=== PATIENT | female | born 1980 | race Caucasian/White ===

== ENCOUNTER 2019-09-21 22:27 | Inpatient (IN) | payer MEDICAID ==
[~2019-09-21] VITALS: Ht 162.6 cm; Wt 58.2 kg
[2019-09-21 23:52] LABS: BASOPHILS % (AUTO) 0.6 % (0.0-2.0); EOSINOPHILS % (AUTO) 0.7 % (1.0-6.0); HEMATOCRIT 36.8 % (36-46); HEMOGLOBIN 12.1 g/dL (12.0-16.0); LYMPHOCYTES # (AUTO) 1.4 K/uL (1.0-4.8); LYMPHOCYTES % (AUTO) 32.1 % (22.0-44.0); MEAN CORPUSCULAR HEMOGLOBIN 28.5 pg (26.0-34.0); MEAN CORPUSCULAR HGB CONC 32.8 G/dL (31.0-37.0); MEAN CORPUSCULAR VOLUME 87 fL (80-100); MONOCYTES # (AUTO) 0.4 K/uL (0.1-1.0); NEUTROPHILS # (AUTO) 2.6 K/uL (1.8-7.7); NEUTROPHILS % (AUTO) 57.6 % (40.0-70.0); PLATELET COUNT (AUTO) 366 K/uL (150-450); RED BLOOD CELL COUNT(AUTO) 4.23 MIL/uL (4.00-5.20); RED CELL DISTRIBUTION WIDTH 14.7 % (11.5-14.5)
[2019-09-22 00:26] LABS: SODIUM SERUM 141 mmol/L (136-145)
[2019-09-22 00:28] LABS: ANION GAP 14 mmol/L (8-16); CARBON DIOXIDE 24 mmol/L (22-29); CHLORIDE 103 mmol/L (98-107); CREATININE 0.54 mg/dL (0.60-1.30); GLOMERULAR FILTR. RATE CALC > 60 mL/min (>60); GLUCOSE,RANDOM 83 mg/dL (70-110); UREA NITROGEN, BLOOD 8 mg/dL (7-18)
[2019-09-22 00:29] LABS: ALANINE AMINOTRANSFERASE 66 U/L (12-78); ALBUMIN 3.6 g/dL (3.4-5.0); ALKALINE PHOSPHATASE 71 U/L (46-116); ASPARTATE AMINOTRANSFERASE 76 U/L (15-37); CALCIUM, TOTAL 8.5 mg/dL (8.8-10.5); HCG,QUANTITATIVE < 1 mIU/mL (0-6)
[2019-09-22] MEDS ORDERED: POTASSIUM CHLORIDE 20 MEQ ER TABLET PO ONE (01:00)
[2019-09-22] MEDS ORDERED: ZOLPIDEM TARTRATE 10 MG TABLET PO PRN (01:15)
[2019-09-22 01:28] LABS: CREATINE KINASE, TOTAL ONLY 899 U/L (26-192)
[2019-09-22 05:03] VITALS: BP 129/71
[2019-09-22] MEDS ORDERED: MAG HYDROX/AL HYDROX/SIMETH ES 30 ML SUSPENSION UDCUP PO PRN (07:45)
[2019-09-22] MEDS ORDERED: PETROLATUM,WHITE 28 GM JELLY TP PRN (07:45)
[2019-09-22] MEDS ORDERED: CloNIDine HCL 0.1 MG TABLET PO PRN (07:45)
[2019-09-22] MEDS ORDERED: MAGNESIUM HYDROXIDE SUSPENSION 30 ML UDCUP PO PRN (07:45)
[2019-09-22] MEDS ORDERED: ONDANSETRON HCL 4 MG TABLET PO PRN (07:45)
[2019-09-22] MEDS ORDERED: NICOTINE 14 MG/24 HOUR PATCH TD PRN (07:45)
[2019-09-22] MEDS ORDERED: DOCUSATE SODIUM 100 MG CAPSULE PO PRN (07:45)
[2019-09-22] MEDS ORDERED: ALBUTEROL SULFATE HFA 90 MCG/PUFF 8 GM INHALER IH PRN (07:45)
[2019-09-22] MEDS ORDERED: IBUPROFEN 400 MG TABLET PO PRN (07:45)
[2019-09-22] MEDS ORDERED: GuaiFENesin/D-METHORPHAN [SUGAR-FREE] 200-20MG/10 ML SYRUP UDCUP PO PRN (07:45)
[2019-09-22] MEDS ORDERED: ACETAMINOPHEN 325 MG TABLET PO PRN (07:45)
[2019-09-22] MEDS ORDERED: LOPERAMIDE HCL 2 MG CAPSULE PO PRN (07:45)
[2019-09-22 09:31] VITALS: BP 131/66
[2019-09-22 16:00] VITALS: BP 125/67
[2019-09-22] MEDS: OLANZapine 5 MG TABLET PO SCH (16:15)
[2019-09-23 07:17] LABS: CHOL/HDL RATIO 2.3 (3.9-5.7); POTASSIUM 3.1 mmol/L (3.5-5.1)
[2019-09-23] MEDS: OLANZapine 5 MG TABLET PO SCH ×2 (08:18→16:26)
[2019-09-23 09:41] VITALS: BP 103/61
[2019-09-23 16:00] VITALS: BP 126/63
[2019-09-24 08:30] VITALS: BP 110/59
[2019-09-24] MEDS: OLANZapine 5 MG TABLET PO SCH ×2 (08:39→16:46)
[2019-09-24] MEDS: BuPROPion HCL XL 150 MG ER TABLET PO SCH (14:12)
[2019-09-24 16:00] VITALS: BP 106/58
[2019-09-24] MEDS ORDERED: POTASSIUM CHLORIDE 20 MEQ ER TABLET PO ONE (17:30)
[2019-09-24] MEDS: CIPROFLOXACIN HCL 0.3% 2.5 ML OPHTHALMIC SOLUTION OU SCH (19:33)
[2019-09-25] MEDS: CIPROFLOXACIN HCL 0.3% 2.5 ML OPHTHALMIC SOLUTION OU SCH ×2 (08:33→16:26)
[2019-09-25] MEDS: BuPROPion HCL XL 150 MG ER TABLET PO SCH (08:33)
[2019-09-25] MEDS: OLANZapine 5 MG TABLET PO SCH ×2 (08:33→16:26)
[2019-09-25 11:04] VITALS: BP 119/62
[2019-09-25 17:40] VITALS: BP 116/55
[2019-09-26 08:52] VITALS: BP 101/57
[2019-09-26] MEDS: BuPROPion HCL XL 150 MG ER TABLET PO SCH (09:41)
[2019-09-26] MEDS: OLANZapine 5 MG TABLET PO SCH ×2 (09:41→16:58)
[2019-09-26] MEDS: CIPROFLOXACIN HCL 0.3% 2.5 ML OPHTHALMIC SOLUTION OU SCH ×2 (09:41→16:59)
[2019-09-26 16:00] VITALS: BP 112/61
[2019-09-26] MEDS: LORazepam 2 MG TABLET PO PRN (18:17)
[2019-09-26] MEDS: HALOPERIDOL 5 MG TABLET PO PRN (18:17)
[2019-09-27] MEDS: OLANZapine 5 MG TABLET PO SCH (09:16)
[2019-09-27] MEDS: BuPROPion HCL XL 150 MG ER TABLET PO SCH (09:16)
[2019-09-27] MEDS: CIPROFLOXACIN HCL 0.3% 2.5 ML OPHTHALMIC SOLUTION OU SCH ×2 (09:16→16:31)
[2019-09-27] MEDS: LORazepam 2 MG TABLET PO PRN (09:17)
[2019-09-27] MEDS: HALOPERIDOL 5 MG TABLET PO PRN (09:17)
[2019-09-27 09:33] VITALS: BP 102/56
[2019-09-27 16:00] VITALS: BP 100/56
[2019-09-27] MEDS: OLANZapine 7.5 MG TABLET PO SCH (16:30)
[2019-09-28 08:00] VITALS: BP 102/52
[2019-09-28] MEDS: CIPROFLOXACIN HCL 0.3% 2.5 ML OPHTHALMIC SOLUTION OU SCH ×2 (08:40→16:35)
[2019-09-28] MEDS: BuPROPion HCL XL 150 MG ER TABLET PO SCH (08:43)
[2019-09-28] MEDS: LORazepam 2 MG TABLET PO PRN (08:43)
[2019-09-28] MEDS: OLANZapine 7.5 MG TABLET PO SCH ×2 (08:43→16:35)
[2019-09-28] MEDS: HALOPERIDOL 5 MG TABLET PO PRN (08:43)
[2019-09-28 16:00] VITALS: BP 101/59
[2019-09-29 08:00] VITALS: BP 107/62
[2019-09-29] MEDS: OLANZapine 7.5 MG TABLET PO SCH ×2 (09:21→16:42)
[2019-09-29] MEDS: BuPROPion HCL XL 150 MG ER TABLET PO SCH (09:21)
[2019-09-29] MEDS: LORazepam 2 MG TABLET PO PRN ×2 (09:21→17:54)
[2019-09-29] MEDS: HALOPERIDOL 5 MG TABLET PO PRN ×2 (09:22→17:54)
[2019-09-29] MEDS: CIPROFLOXACIN HCL 0.3% 2.5 ML OPHTHALMIC SOLUTION OU SCH ×2 (09:26→16:42)
[2019-09-29 16:01] VITALS: BP 102/50
[2019-09-30 08:00] VITALS: BP 105/60
[2019-09-30] MEDS: BuPROPion HCL XL 150 MG ER TABLET PO SCH (08:24)
[2019-09-30] MEDS: OLANZapine 7.5 MG TABLET PO SCH ×2 (08:24→16:24)
[2019-09-30] MEDS: LORazepam 2 MG TABLET PO PRN ×2 (08:26→16:27)
[2019-09-30] MEDS: CIPROFLOXACIN HCL 0.3% 2.5 ML OPHTHALMIC SOLUTION OU SCH ×2 (08:28→16:24)
[2019-09-30] MEDS: HALOPERIDOL 5 MG TABLET PO PRN (13:17)
[2019-09-30 16:01] VITALS: BP 106/61
[2019-09-30] MEDS: NICOTINE 14 MG/24 HOUR PATCH TD SCH (18:38)
[2019-10-01] MEDS: BuPROPion HCL XL 150 MG ER TABLET PO SCH (09:52)
[2019-10-01] MEDS: CIPROFLOXACIN HCL 0.3% 2.5 ML OPHTHALMIC SOLUTION OU SCH ×2 (09:53→17:37)
[2019-10-01] MEDS: OLANZapine 7.5 MG TABLET PO SCH ×2 (09:53→17:36)
[2019-10-01] MEDS: HALOPERIDOL 5 MG TABLET PO PRN (09:53)
[2019-10-01] MEDS: LORazepam 2 MG TABLET PO PRN (09:53)
[2019-10-01] MEDS: NICOTINE 14 MG/24 HOUR PATCH TD SCH (09:54)
[2019-10-01 10:59] VITALS: BP 101/55
[2019-10-01 17:00] VITALS: BP 103/54
[2019-10-01] MEDS: QUEtiapine FUMARATE 25 MG TABLET PO SCH (20:50)
[2019-10-02] MEDS: HALOPERIDOL 5 MG TABLET PO PRN (08:02)
[2019-10-02] MEDS: BuPROPion HCL XL 150 MG ER TABLET PO SCH (08:02)
[2019-10-02] MEDS: LORazepam 2 MG TABLET PO PRN ×2 (08:03→16:49)
[2019-10-02] MEDS: OLANZapine 7.5 MG TABLET PO SCH ×2 (08:03→16:03)
[2019-10-02] MEDS: NICOTINE 14 MG/24 HOUR PATCH TD SCH (08:08)
[2019-10-02 09:22] VITALS: BP 106/69
[2019-10-02 16:00] VITALS: BP 101/51
[2019-10-02] MEDS: QUEtiapine FUMARATE 25 MG TABLET PO SCH (20:13)
[2019-10-03] MEDS: HALOPERIDOL 5 MG TABLET PO PRN (08:21)
[2019-10-03] MEDS: BuPROPion HCL XL 150 MG ER TABLET PO SCH (08:21)
[2019-10-03] MEDS: NICOTINE 14 MG/24 HOUR PATCH TD SCH (08:21)
[2019-10-03] MEDS: LORazepam 2 MG TABLET PO PRN (08:22)
[2019-10-03] MEDS: OLANZapine 7.5 MG TABLET PO SCH (08:22)
[2019-10-03] MEDS ORDERED: OLAN7.5T2 PO (08:52)
[2019-10-03] MEDS ORDERED: QUET25TA PO (08:52)
[2019-10-03] MEDS ORDERED: BUPR-93 PO (08:52)
[2019-10-03 09:09] VITALS: BP 114/80
== END 2019-10-03 10:20 | disposition home or self-care (01) | DRG 885 ==
LOC: EMS 22:27 → EDBD 22:27 → 3EI 09-22 01:14
PROVIDERS: ADMIT Psychiatry & Neurology Psychiatry; ATTEND Psychiatry & Neurology Psychiatry
DX: F25.9 Schizoaffective disorder, unspecified (principal); M62.82 Rhabdomyolysis; R45.851 Suicidal ideations; E87.6 Hypokalemia; F10.10 Alcohol abuse, uncomplicated; F17.200 Nicotine dependence, unspecified, uncomplicated; H10.9 Unspecified conjunctivitis; Z59.0 Homelessness
CPT/HCPCS: 70450; 84132; G0480

== ENCOUNTER 2019-10-26 22:17 | Inpatient (IN) | payer MEDICAID ==
[~2019-10-26] VITALS: Ht 170.2 cm; Wt 52.6 kg
[~2019-10-26 22:17] MED LIST: ARIP10TA8 PO; BUPR-93 PO; FERR-89 PO; FLUO-191 PO; OLAN7.5T2 PO; QUET25TA PO
[2019-10-26 23:28] LABS: BASOPHILS % (AUTO) 0.6 % (0.0-2.0); EOSINOPHILS % (AUTO) 0.9 % (1.0-6.0); HEMATOCRIT 42.3 % (36-46); HEMOGLOBIN 13.6 g/dL (12.0-16.0); LYMPHOCYTES # (AUTO) 2.1 K/uL (1.0-4.8); LYMPHOCYTES % (AUTO) 32.6 % (22.0-44.0); MEAN CORPUSCULAR HEMOGLOBIN 28.1 pg (26.0-34.0); MEAN CORPUSCULAR HGB CONC 32.2 G/dL (31.0-37.0); MEAN CORPUSCULAR VOLUME 87 fL (80-100); MONOCYTES # (AUTO) 0.7 K/uL (0.1-1.0); MONOCYTES % (AUTO) 10.5 % (2.0-9.0); NEUTROPHILS # (AUTO) 3.5 K/uL (1.8-7.7); NEUTROPHILS % (AUTO) 55.4 % (40.0-70.0); PLATELET COUNT (AUTO) 485 K/uL (150-450); RED BLOOD CELL COUNT(AUTO) 4.86 MIL/uL (4.00-5.20); RED CELL DISTRIBUTION WIDTH 16.4 % (11.5-14.5)
[2019-10-27 00:25] LABS: ANION GAP 8 mmol/L (8-16); CALCIUM, TOTAL 9.1 mg/dL (8.8-10.5); CARBON DIOXIDE 29 mmol/L (22-29); CHLORIDE 100 mmol/L (98-107); CREATININE 0.98 mg/dL (0.60-1.30); GLOMERULAR FILTR. RATE CALC > 60 mL/min (>60); GLUCOSE,RANDOM 104 mg/dL (70-110); POTASSIUM 3.4 mmol/L (3.5-5.1); SODIUM SERUM 137 mmol/L (136-145); UREA NITROGEN, BLOOD 19 mg/dL (7-18)
[2019-10-27 00:52] LABS: ALANINE AMINOTRANSFERASE 34 U/L (12-78); ALBUMIN 3.9 g/dL (3.4-5.0); ALKALINE PHOSPHATASE 87 U/L (46-116); ASPARTATE AMINOTRANSFERASE 31 U/L (15-37); BILIRUBIN,TOTAL 0.6 mg/dL (0.1-1.0); HCG,QUANTITATIVE < 1 mIU/mL (0-6); TOTAL PROTEIN, SERUM 8.1 g/dL (6.4-8.2)
[2019-10-27] MEDS ORDERED: POTASSIUM CHLORIDE 10% 40 MEQ/30 ML LIQUID UDCUP PO ONE (02:15)
[2019-10-27] MEDS ORDERED: HALOPERIDOL 5 MG TABLET PO PRN (02:15)
[2019-10-27 04:45] VITALS: BP 124/79
[2019-10-27 08:16] VITALS: BP 109/65
[2019-10-27] MEDS ORDERED: LOPERAMIDE HCL 2 MG CAPSULE PO PRN (08:30)
[2019-10-27] MEDS ORDERED: NICOTINE 14 MG/24 HOUR PATCH TD PRN (08:30)
[2019-10-27] MEDS ORDERED: ALBUTEROL SULFATE HFA 90 MCG/PUFF 8 GM INHALER IH PRN (08:30)
[2019-10-27] MEDS ORDERED: ONDANSETRON HCL 4 MG TABLET PO PRN (08:30)
[2019-10-27] MEDS ORDERED: CloNIDine HCL 0.1 MG TABLET PO PRN (08:30)
[2019-10-27] MEDS ORDERED: GuaiFENesin/D-METHORPHAN [SUGAR-FREE] 200-20MG/10 ML SYRUP UDCUP PO PRN (08:30)
[2019-10-27] MEDS ORDERED: ACETAMINOPHEN 325 MG TABLET PO PRN (08:30)
[2019-10-27] MEDS ORDERED: MAGNESIUM HYDROXIDE SUSPENSION 30 ML UDCUP PO PRN (08:30)
[2019-10-27] MEDS ORDERED: PETROLATUM,WHITE 28 GM JELLY TP PRN (08:30)
[2019-10-27] MEDS ORDERED: MAG HYDROX/AL HYDROX/SIMETH ES 30 ML SUSPENSION UDCUP PO PRN (08:30)
[2019-10-27] MEDS ORDERED: DOCUSATE SODIUM 100 MG CAPSULE PO PRN (08:30)
[2019-10-27] MEDS: NICOTINE 7 MG/24 HOUR PATCH TD SCH (09:18)
[2019-10-27] MEDS: IBUPROFEN 400 MG TABLET PO PRN (12:26)
[2019-10-27] MEDS: LORazepam 2 MG TABLET PO PRN (12:26)
[2019-10-27 16:33] VITALS: BP 109/79
[2019-10-27] MEDS: FERROUS SULFATE 325 MG EC TABLET PO SCH (17:00)
[2019-10-27] MEDS: QUEtiapine FUMARATE 25 MG TABLET PO SCH (20:26)
[2019-10-28 00:36] VITALS: BP 111/72
[2019-10-28] MEDS: FERROUS SULFATE 325 MG EC TABLET PO SCH ×2 (06:20→17:00)
[2019-10-28] MEDS: LORazepam 2 MG TABLET PO PRN (07:22)
[2019-10-28 07:23] VITALS: BP 109/71
[2019-10-28] MEDS: FLUoxetine HCL 20 MG CAPSULE PO SCH (08:53)
[2019-10-28] MEDS: BuPROPion HCL XL 150 MG ER TABLET PO SCH (08:53)
[2019-10-28] MEDS: ARIPiprazole 10 MG TABLET PO SCH (08:53)
[2019-10-28] MEDS: NICOTINE 7 MG/24 HOUR PATCH TD SCH (08:54)
[2019-10-28 08:55] LABS: CHOL/HDL RATIO 2.5 (3.9-5.7)
[2019-10-28 09:00] VITALS: BP 119/75
[2019-10-28 16:18] VITALS: BP 117/72
[2019-10-28] MEDS: QUEtiapine FUMARATE 25 MG TABLET PO SCH (20:25)
[2019-10-29] MEDS: LORazepam 2 MG TABLET PO PRN ×2 (06:18→14:34)
[2019-10-29] MEDS: IBUPROFEN 400 MG TABLET PO PRN ×2 (06:18→14:34)
[2019-10-29 06:21] VITALS: BP 129/80
[2019-10-29] MEDS: FERROUS SULFATE 325 MG EC TABLET PO SCH ×2 (06:45→16:37)
[2019-10-29] MEDS: NICOTINE 7 MG/24 HOUR PATCH TD SCH (08:56)
[2019-10-29] MEDS: ARIPiprazole 10 MG TABLET PO SCH (08:56)
[2019-10-29] MEDS: FLUoxetine HCL 20 MG CAPSULE PO SCH (08:56)
[2019-10-29] MEDS: BuPROPion HCL XL 150 MG ER TABLET PO SCH (08:56)
[2019-10-29 08:59] VITALS: BP 123/86
[2019-10-29 16:00] VITALS: BP 121/77
[2019-10-29 16:25] VITALS: BP 121/77
[2019-10-29] MEDS: QUEtiapine FUMARATE 25 MG TABLET PO SCH (20:18)
[2019-10-29] MEDS: ZOLPIDEM TARTRATE 10 MG TABLET PO PRN (21:09)
[2019-10-30 05:37] VITALS: BP 127/77
[2019-10-30] MEDS: FERROUS SULFATE 325 MG EC TABLET PO SCH ×2 (06:24→16:40)
[2019-10-30] MEDS: BuPROPion HCL XL 150 MG ER TABLET PO SCH (08:24)
[2019-10-30] MEDS: ARIPiprazole 10 MG TABLET PO SCH (08:24)
[2019-10-30] MEDS: FLUoxetine HCL 20 MG CAPSULE PO SCH (08:24)
[2019-10-30] MEDS: NICOTINE 7 MG/24 HOUR PATCH TD SCH (08:25)
[2019-10-30] MEDS: LORazepam 2 MG TABLET PO PRN ×2 (09:13→15:40)
[2019-10-30] MEDS: IBUPROFEN 400 MG TABLET PO PRN (09:13)
[2019-10-30 09:14] VITALS: BP 128/75
[2019-10-30 16:55] VITALS: BP 110/65
[2019-10-30] MEDS: QUEtiapine FUMARATE 25 MG TABLET PO SCH (20:59)
[2019-10-30] MEDS: ZOLPIDEM TARTRATE 10 MG TABLET PO PRN (20:59)
[2019-10-31 01:50] VITALS: BP 113/69
[2019-10-31] MEDS: FERROUS SULFATE 325 MG EC TABLET PO SCH ×2 (06:42→16:09)
[2019-10-31 08:39] VITALS: BP 118/73
[2019-10-31] MEDS: ARIPiprazole 10 MG TABLET PO SCH (08:53)
[2019-10-31] MEDS: BuPROPion HCL XL 150 MG ER TABLET PO SCH (08:53)
[2019-10-31] MEDS: MULTIVITAMINS WITH MINERALS, THERAPEUTIC TABLET PO SCH (08:53)
[2019-10-31] MEDS: FLUoxetine HCL 20 MG CAPSULE PO SCH (08:53)
[2019-10-31] MEDS: NICOTINE 7 MG/24 HOUR PATCH TD SCH (08:54)
[2019-10-31] MEDS: IBUPROFEN 400 MG TABLET PO PRN (10:05)
[2019-10-31] MEDS: LORazepam 2 MG TABLET PO PRN ×2 (10:05→16:09)
[2019-10-31 16:19] VITALS: BP 116/68
[2019-10-31] MEDS: QUEtiapine FUMARATE 25 MG TABLET PO SCH (20:21)
[2019-10-31] MEDS: ZOLPIDEM TARTRATE 10 MG TABLET PO PRN (20:59)
[2019-11-01 06:37] VITALS: BP 122/64
[2019-11-01] MEDS: FERROUS SULFATE 325 MG EC TABLET PO SCH (07:01)
[2019-11-01 07:44] LABS: APPEARANCE,URINE CLOUDY (CLEAR); BILIRUBIN,URINE NEGATIVE (NEGATIVE); GLUCOSE, URINE (UA) NEGATIVE (NEGATIVE); KETONES,URINE NEGATIVE (NEGATIVE); LEUKOCYTE ESTERASE ,URINE MODERATE (NEGATIVE); NITRATE,URINE NEGATIVE (NEGATIVE); OCCULT BLOOD,URINE NEGATIVE (NEGATIVE); PROTEIN,URINE NEGATIVE (NEGATIVE); UROBILINOGEN,URINE 0.2 mg/dL (<=1.0)
[2019-11-01 07:50] LABS: AMPHET/METH SCREEN,URINE NEGATIVE (NEGATIVE); BARBITURATE SCREEN, URINE NEGATIVE (NEGATIVE); BENZODIAZEPINES SCREEN,URINE NEGATIVE (NEGATIVE); CANNABINOID SCREEN,URINE POSITIVE (NEGATIVE); COCAINE SCREEN,URINE NEGATIVE (NEGATIVE); METHADONE SCREEN, URINE NEGATIVE (NEGATIVE); OPIATE SCREEN,URINE NEGATIVE (NEGATIVE)
[2019-11-01 07:52] LABS: PHENCYCLIDINE SCREEN,URINE NEGATIVE (NEGATIVE)
[2019-11-01] MEDS: NICOTINE 7 MG/24 HOUR PATCH TD SCH (08:54)
[2019-11-01] MEDS: BuPROPion HCL XL 150 MG ER TABLET PO SCH (08:55)
[2019-11-01] MEDS: ARIPiprazole 10 MG TABLET PO SCH (08:55)
[2019-11-01] MEDS: FLUoxetine HCL 20 MG CAPSULE PO SCH (08:55)
[2019-11-01] MEDS: MULTIVITAMINS WITH MINERALS, THERAPEUTIC TABLET PO SCH (08:55)
[2019-11-01 08:56] LABS: RBC,URINE None Seen /HPF (0-2)
[2019-11-01 08:57] LABS: BACTERIA,URINE None Seen /HPF (None Seen); SQUAMOUS EPITHELIAL CELL,UR Moderate /LPF (None Seen)
[2019-11-01] MEDS: LORazepam 2 MG TABLET PO PRN (09:00)
[2019-11-01 09:52] VITALS: BP 120/67
== END 2019-11-01 15:35 | disposition home or self-care (01) | DRG 885 ==
LOC: EMS 22:21 → B2S 10-27 02:00
PROVIDERS: ADMIT Psychiatry & Neurology Psychiatry; ATTEND Psychiatry & Neurology Psychiatry
DX: F20.0 Paranoid schizophrenia (principal); R45.851 Suicidal ideations; Z59.0 Homelessness; F43.10 Post-traumatic stress disorder, unspecified; F10.10 Alcohol abuse, uncomplicated; E87.6 Hypokalemia; Z88.0 Allergy status to penicillin
CPT/HCPCS: 80307; 84132; 87081; 87086; G0480